=== PATIENT | female | born 1945 | race Caucasian/White ===

== ENCOUNTER 2016-11-04 09:29 | Emergency (ER) | payer MEDICARE, OTHER ==
[2016-11-04] MEDS ORDERED: LOSARTAN POTASS50 MG PO (09:37)
[2016-11-04] MEDS ORDERED: VERAPAMIL ER240 M1 PO (09:38)
[2016-11-04] MEDS ORDERED: FEMARA2.5 MG PO (09:38)
[2016-11-04] MEDS ORDERED: IRON45 MG PO (09:38)
[2016-11-04] MEDS ORDERED: PEPCID40 MG PO (09:38)
[2016-11-04] MEDS ORDERED: ASPIRIN81 M2 PO (09:38)
[2016-11-04] MEDS ORDERED: VITAMIN D2000 UNIT PO (09:39)
[2016-11-04] MEDS ORDERED: ALLERGY25 MG PO (09:39)
== END 2016-11-04 10:15 | disposition home or self-care (01) ==
LOC: SED 09:29
DX: L03.114 Cellulitis of left upper limb (principal); I80.8 Phlebitis and thrombophlebitis of other sites; Z90.49 Acquired absence of other specified parts of digestive tract; I10 Essential (primary) hypertension; Z88.5 Allergy status to narcotic agent
CPT/HCPCS: 99282